=== PATIENT | male | born 1950 | race African-American/Black ===

== ENCOUNTER 2016-12-08 11:46 | Emergency (ER) | payer MEDICARE, OTHER ==
[~2016-12-08] VITALS: Ht 182.9 cm; Wt 104.0 kg
[~2016-12-08 11:46] MED LIST: ALPRAZOLAM; AMLO5TAB88; CLON0.2T; DIGO250T81; DIGOXIN; TAMS-11; ZOLP10TA6
[2016-12-08 14:55] LABS: CLARITY URINE CLEAR (CLEAR); COLOR URINE YELLOW (YELLOW); GLUCOSE URINE NEGATIVE (NEGATIVE); KETONES URINE NEGATIVE (NEGATIVE); LEUKOCYTE ESTERASE URINE NEGATIVE (NEGATIVE); NITRITE URINE NEGATIVE (NEGATIVE); OCCULT BLOOD URINE NEGATIVE (NEGATIVE); PH URINE >=9.0 (4.5-8.0); PROTEIN URINE NEGATIVE (NEGATIVE); SPECIFIC GRAVITY URINE 1.009 (1.005-1.030)
[2016-12-08 15:21] VITALS: BP 148/82
== END 2016-12-08 15:26 | disposition home or self-care (01) ==
LOC: ER 14:04
DX: F41.9 Anxiety disorder, unspecified (principal); I10 Essential (primary) hypertension
CPT/HCPCS: 81003; 99284

== ENCOUNTER 2018-03-23 19:40 | Emergency (ER) | payer MEDICARE, OTHER ==
[~2018-03-23] VITALS: Ht 182.9 cm; Wt 103.0 kg
[~2018-03-23 19:40] MED LIST changes: -ALPRAZOLAM; -AMLO5TAB88; -CLON0.2T; -DIGO250T81; -DIGOXIN
[2018-03-24 01:31] LABS: BASOPHILS % 0.9 % (0.0-2.0); EOSINOPHILS % 1.4 % (0.0-5.0); HEMATOCRIT. 47.8 % (42.0-52.0); LYMPHOCYTES % 36.7 % (20.0-50.0); MEAN CORPUSCULAR HEMOGLOBIN 28.2 pg (28.0-32.0); MEAN CORPUSCULAR VOLUME 84.1 fL (80.0-94.0); PLATELET 219 x1000/uL (130-400); RED BLOOD CELL COUNT 5.68 mill/uL (4.7-6.1); RED CELL DISTRIBUTION WIDTH 15.6 % (11.6-14.6)
[2018-03-24 01:37] LABS: CHLORIDE 106 mEq/L (98-107)
[2018-03-24 03:22] LABS: CLARITY URINE CLEAR (CLEAR); COLOR URINE YELLOW (YELLOW); KETONES URINE TRACE (NEGATIVE); LEUKOCYTE ESTERASE URINE NEGATIVE (NEGATIVE); NITRITE URINE NEGATIVE (NEGATIVE); OCCULT BLOOD URINE TRACE (NEGATIVE); PH URINE 6.5 (4.5-8.0); PROTEIN URINE NEGATIVE (NEGATIVE)
[2018-03-24 03:53] VITALS: BP 133/80
== END 2018-03-24 03:54 | disposition home or self-care (01) ==
LOC: ER 19:40
DX: N40.1 Benign prostatic hyperplasia with lower urinary tract symptoms (principal); R33.8 Other retention of urine; I11.9 Hypertensive heart disease without heart failure
CPT/HCPCS: 36415; 51702; 80048; 93005; 99284; A4315

== ENCOUNTER 2018-03-29 11:50 | Emergency (ER) | payer MEDICARE, OTHER ==
[~2018-03-29] VITALS: Ht 182.9 cm; Wt 104.5 kg
[2018-03-29 14:28] LABS: CLARITY URINE CLEAR (CLEAR); COLOR URINE YELLOW (YELLOW); KETONES URINE TRACE (NEGATIVE); LEUKOCYTE ESTERASE URINE NEGATIVE (NEGATIVE); NITRITE URINE NEGATIVE (NEGATIVE); OCCULT BLOOD URINE NEGATIVE (NEGATIVE); PH URINE 5.5 (4.5-8.0); PROTEIN URINE NEGATIVE (NEGATIVE); SPECIFIC GRAVITY URINE 1.019 (1.005-1.030)
[2018-03-29 14:47] LABS: BASOPHILS % 1.1 % (0.0-2.0); EOSINOPHILS % 0.6 % (0.0-5.0); HEMOGLOBIN. 15.7 g/dL (14.0-18.0); LYMPHOCYTES % 17.3 % (20.0-50.0); MEAN CORPUSCULAR HEMOGLOBIN 27.8 pg (28.0-32.0); MEAN CORPUSCULAR VOLUME 83.4 fL (80.0-94.0); MEAN PLATELET VOLUME 9.6 fl (7.4-10.4); MONOCYTES % 5.1 % (2.0-8.0); NEUTROPHILS % 75.9 % (40.0-76.0); PLATELET 199 x1000/uL (130-400); RED BLOOD CELL COUNT 5.63 mill/uL (4.7-6.1); RED CELL DISTRIBUTION WIDTH 15.9 % (11.6-14.6)
[2018-03-29 14:55] LABS: CHLORIDE 109 mEq/L (98-107)
[2018-03-29 15:36] VITALS: BP 130/89
== END 2018-03-29 15:49 | disposition home or self-care (01) ==
LOC: ER 12:21
DX: N40.0 Benign prostatic hyperplasia without lower urinary tract symptoms (principal); I11.9 Hypertensive heart disease without heart failure; I25.10 Atherosclerotic heart disease of native coronary artery without angina pectoris; Z95.1 Presence of aortocoronary bypass graft
CPT/HCPCS: 36415; 80048; 99283

== ENCOUNTER 2018-06-11 10:59 | Inpatient (IN) | payer MEDICARE, OTHER ==
[~2018-06-11] VITALS: Ht 182.9 cm; Wt 99.4 kg
[~2018-06-11 10:59] MED LIST changes: -ZOLP10TA6
[2018-06-11 13:39] LABS: BASOPHILS % 0.7 % (0.0-2.0); EOSINOPHILS % 1.1 % (0.0-5.0); HEMATOCRIT. 46.2 % (42.0-52.0); HEMOGLOBIN. 15.2 g/dL (14.0-18.0); LYMPHOCYTES % 28.4 % (20.0-50.0); MEAN CORPUSCULAR HEMOGLOBIN 27.9 pg (28.0-32.0); MEAN CORPUSCULAR VOLUME 84.8 fL (80.0-94.0); MEAN PLATELET VOLUME 9.7 fl (7.4-10.4); MONOCYTES % 7.1 % (2.0-8.0); NEUTROPHILS % 62.7 % (40.0-76.0); PLATELET 217 x1000/uL (130-400); RED BLOOD CELL COUNT 5.45 mill/uL (4.7-6.1)
[2018-06-11 13:45] LABS: CHLORIDE 109 mEq/L (98-107); INR 1.1; PROTHROMBIN TIME 11.3 sec (9.1-11.1)
[2018-06-11] MEDS ORDERED: GUAIFENESIN 200MG/10ML SUGAR FREE UDC PO PRN (15:30)
[2018-06-11] MEDS ORDERED: DOCUSATE SODIUM 100MG CAPSULE PO PRN (15:30)
[2018-06-11] MEDS ORDERED: HYDROCODONE/ACETAMINOPHEN 5/325MG TABLET PO PRN (15:30)
[2018-06-11] MEDS ORDERED: MAGNESIUM/ALUMINUM HYDROXIDE/SIMETHICONE 30ML UDC PO PRN (15:30)
[2018-06-11] MEDS ORDERED: NA PHOS,M-B/NA PHOS,DI-BA ENEMA 118ML PR PRN (15:30)
[2018-06-11] MEDS ORDERED: ACETAMINOPHEN 325MG TABLET PO PRN (15:30)
[2018-06-11] MEDS ORDERED: IPRATROPIUM/ALBUTEROL 0.5-3(2.5)MG/3ML NEB INH PRN (15:30)
[2018-06-11] MEDS ORDERED: CLONIDINE 0.1MG TABLET PO PRN (15:30)
[2018-06-11] MEDS: LORAZEPAM 0.5MG TABLET PO PRN (18:56)
[2018-06-12] MEDS: AMLODIPINE 10MG TABLET PO NR (00:44)
[2018-06-12] MEDS: DIPHENHYDRAMINE 50MG/ML VIAL IV PRN (01:34)
[2018-06-12 05:56] LABS: BASOPHILS % 0.9 % (0.0-2.0); EOSINOPHILS % 1.5 % (0.0-5.0); HEMOGLOBIN. 14.9 g/dL (14.0-18.0); LYMPHOCYTES % 29.1 % (20.0-50.0); MEAN CORPUSCULAR HEMOGLOBIN 28.5 pg (28.0-32.0); MEAN CORPUSCULAR VOLUME 84.4 fL (80.0-94.0); MEAN PLATELET VOLUME 9.8 fl (7.4-10.4); MONOCYTES % 8.9 % (2.0-8.0); NEUTROPHILS % 59.6 % (40.0-76.0); PLATELET 217 x1000/uL (130-400); RED BLOOD CELL COUNT 5.21 mill/uL (4.7-6.1); RED CELL DISTRIBUTION WIDTH 17.8 % (11.6-14.6)
[2018-06-12 06:05] LABS: CHLORIDE 108 mEq/L (98-107)
[2018-06-12 06:12] LABS: LDL CHOLESTEROL 96 mg/dL (5-100)
[2018-06-12 06:13] LABS: HDL CHOLESTEROL 60 mg/dL (40-59)
[2018-06-12] MEDS: CLONIDINE 0.1MG TABLET PO PRN ×2 (08:42→17:32)
[2018-06-12] MEDS: LORAZEPAM 0.5MG TABLET PO PRN ×3 (08:42→21:30)
[2018-06-12 15:30] VITALS: BP 179/102
[2018-06-12 15:39] LABS: CREATINE KINASE 43 IU/L (39-308)
[2018-06-12 16:19] VITALS: BP 179/102
[2018-06-12] MEDS ORDERED: APIX5TAB MT (16:29)
[2018-06-12] MEDS ORDERED: ALPR0.25 PO (16:34)
[2018-06-12] MEDS ORDERED: CLON0.2T PO (16:35)
[2018-06-12] MEDS ORDERED: CIPR-263 MT (16:38)
[2018-06-12] MEDS ORDERED: PNEUMOCOCCAL 23-VAL P-SAC VAC 0.5 ML IM ONE (17:15)
[2018-06-12] MEDS: LOSARTAN POTASSIUM 100 MG TABLET PO SCH (17:33)
[2018-06-13] VITALS (9 sets, daily range): BP systolic 131–196; BP diastolic 30–130
[2018-06-13] MEDS: CLONIDINE 0.1MG TABLET PO PRN ×3 (00:51→23:24)
[2018-06-13] MEDS: LORAZEPAM 0.5MG TABLET PO PRN ×4 (03:54→21:23)
[2018-06-13 06:45] LABS: EOSINOPHILS % 0.6 % (0.0-5.0); HEMATOCRIT. 45.4 % (42.0-52.0); HEMOGLOBIN. 15.2 g/dL (14.0-18.0); LYMPHOCYTES % 27.7 % (20.0-50.0); MEAN CORPUSCULAR HEMOGLOBIN 28.2 pg (28.0-32.0); MEAN CORPUSCULAR VOLUME 84.3 fL (80.0-94.0); MONOCYTES % 9.3 % (2.0-8.0); NEUTROPHILS % 61.4 % (40.0-76.0); PLATELET 213 x1000/uL (130-400); RED BLOOD CELL COUNT 5.38 mill/uL (4.7-6.1); RED CELL DISTRIBUTION WIDTH 17.5 % (11.6-14.6)
[2018-06-13 06:56] LABS: CHLORIDE 107 mEq/L (98-107)
[2018-06-13 07:16] LABS: HDL CHOLESTEROL 60 mg/dL (40-59)
[2018-06-13 07:19] LABS: LDL CHOLESTEROL 100 mg/dL (5-100)
[2018-06-13 07:20] LABS: CREATINE KINASE MB FRACTION 1.1 ng/mL (0.5-3.6)
[2018-06-13] MEDS: LOSARTAN POTASSIUM 100 MG TABLET PO SCH (08:50)
[2018-06-13] MEDS ORDERED: AMLODIPINE 10MG TABLET PO SCH (09:00)
[2018-06-13] MEDS ORDERED: HYDRALAZINE 20MG/ML VIAL IV PRN (11:45)
[2018-06-13] MEDS ORDERED: POTASSIUM CHLORIDE 20MEQ/PACKET PO SCH (12:45)
[2018-06-13] MEDS: DEXAMETHASONE 4MG/ML 1ML VIAL IV SCH ×2 (12:54→17:15)
[2018-06-13] MEDS ORDERED: MAGNESIUM 1 G PREMIX 100 ML IV SCH (14:00)
[2018-06-13] MEDS: AMIODARONE HCL 200 MG TABLET PO SCH ×2 (14:21→20:32)
[2018-06-13] MEDS ORDERED: MAGNESIUM 1 G PREMIX 100 ML IV NR (17:00)
[2018-06-13] MEDS ORDERED: TAMS0.4C31 MT (20:11)
[2018-06-13] MEDS: TAMSULOSIN HCL 0.4MG SR CAPSULE PO SCH (20:32)
[2018-06-13] MEDS: AMLODIPINE 10MG TABLET PO SCH (20:32)
[2018-06-14] VITALS (55 sets, daily range): BP systolic 61–172; BP diastolic 54–111
[2018-06-14] MEDS ORDERED: DEXT 5%/0.45% NACL 1000ML 1,000 ML IV SCH
[2018-06-14] MEDS: DEXAMETHASONE 4MG/ML 1ML VIAL IV SCH ×5 (00:58→23:32)
[2018-06-14] MEDS: ACETAMINOPHEN 650MG SUPP PR PRN ×2 (02:59→03:04)
[2018-06-14 03:51] LABS: CLARITY URINE CLEAR (CLEAR); COLOR URINE DARK YELLOW (YELLOW); KETONES URINE 1+ (NEGATIVE); LEUKOCYTE ESTERASE URINE NEGATIVE (NEGATIVE); NITRITE URINE NEGATIVE (NEGATIVE); OCCULT BLOOD URINE NEGATIVE (NEGATIVE); PROTEIN URINE 1+ (NEGATIVE); SPECIFIC GRAVITY URINE 1.022 (1.005-1.030)
[2018-06-14 06:21] LABS: BASOPHILS % 0.3 % (0.0-2.0); HEMATOCRIT. 48.3 % (42.0-52.0); HEMOGLOBIN. 16.4 g/dL (14.0-18.0); LYMPHOCYTES % 15.8 % (20.0-50.0); MEAN CORPUSCULAR HEMOGLOBIN 28.5 pg (28.0-32.0); MEAN PLATELET VOLUME 9.9 fl (7.4-10.4); MONOCYTES % 3.2 % (2.0-8.0); NEUTROPHILS % 80.7 % (40.0-76.0); PLATELET 260 x1000/uL (130-400); RED BLOOD CELL COUNT 5.76 mill/uL (4.7-6.1); RED CELL DISTRIBUTION WIDTH 17.8 % (11.6-14.6)
[2018-06-14 06:27] LABS: CHLORIDE 109 mEq/L (98-107)
[2018-06-14] MEDS ORDERED: GELATIN SPONGE,ABSORBABLE 12-7MM SPONGE ONE (06:43)
[2018-06-14] MEDS ORDERED: THROMBIN (BOVINE) 5000 UNITS/VIAL TOP ONE ×2 (06:43→06:44)
[2018-06-14] MEDS ORDERED: BACITRACIN 50,000 UNITS/VIAL ONE (06:44)
[2018-06-14] MEDS ORDERED: LIDOCAINE HCL/EPINEPHRINE 1%-EPI 1:100,000 20 ML VIAL ONE (06:44)
[2018-06-14] MEDS ORDERED: NORMAL SALINE 0.9% 10 ML SYR ONE (06:44)
[2018-06-14] MEDS ORDERED: SUCCINYLCHOLINE CHLORIDE 200MG/10ML IV ONE (07:02)
[2018-06-14] MEDS ORDERED: FENTANYL CITRATE/PF 50MCG/ML 2ML VIAL ONE ×3 (07:02→08:02)
[2018-06-14] MEDS ORDERED: PROPOFOL 200MG/20ML VIAL IV ONE ×2 (07:02→07:41)
[2018-06-14] MEDS ORDERED: CEFAZOLIN SODIUM 1000MG/VIAL ONE (07:02)
[2018-06-14] MEDS ORDERED: NEOSTIGMINE METHYLSULFATE 1MG/ML 10 ML VIAL ONE ×2 (07:02→10:12)
[2018-06-14] MEDS ORDERED: SODIUM CHLORIDE 0.9% 10ML VIAL ONE (07:02)
[2018-06-14] MEDS ORDERED: GLYCOPYRROLATE 0.2 MG/ML 2ML VIAL ONE ×2 (07:02→10:12)
[2018-06-14] MEDS ORDERED: ROCURONIUM BROMIDE 10MG/ML VIAL 5ML IV ONE ×3 (07:02→07:56)
[2018-06-14] MEDS ORDERED: MIDAZOLAM HCL 2 MG/2 ML VIAL ONE (07:02)
[2018-06-14] MEDS ORDERED: EPHEDRINE SULFATE 50MG/ML VIAL ONE (07:03)
[2018-06-14] MEDS ORDERED: DEXAMETHASONE 4MG/ML 1ML VIAL ONE (07:03)
[2018-06-14] MEDS ORDERED: METOCLOPRAMIDE HCL 10MG/2ML VIAL ONE (07:03)
[2018-06-14] MEDS ORDERED: PHENYLEPHRINE HCL 10 MG/ML 1ML (IV VIAL) IV ONE (07:03)
[2018-06-14] MEDS ORDERED: ONDANSETRON HCL 4MG/2ML INJ ONE (07:03)
[2018-06-14] MEDS: AMIODARONE HCL 200 MG TABLET PO SCH ×2 (09:00→21:20)
[2018-06-14] MEDS: LOSARTAN POTASSIUM 100 MG TABLET PO SCH (09:00)
[2018-06-14] MEDS: AMLODIPINE 10MG TABLET PO SCH ×2 (09:00→21:20)
[2018-06-14] MEDS: TAMSULOSIN HCL 0.4MG SR CAPSULE PO SCH ×2 (09:00→17:00)
[2018-06-14] MEDS ORDERED: DEXT 5%/LACTATED RINGERS 1,000 ML IV SCH (10:12)
[2018-06-14] MEDS ORDERED: HYDROCODONE/APAP 7.5/325MG 1 TAB TABLET PO PRN (10:13)
[2018-06-14] MEDS ORDERED: MORPHINE SULFATE 4 MG/ML CPJ (NOT FOR IM USE) IV PRN (10:14)
[2018-06-14] MEDS: DEXT 5%/LACTATED RINGERS 1,000 ML IV SCH ×2 (11:50→17:18)
[2018-06-14] MEDS: NICARDIPINE 100 MG in SODIUM CHLORIDE 0.9% 60 ML IV PRN (13:57)
[2018-06-14] MEDS ORDERED: CEFAZOLIN SODIUM 1000MG/VIAL IV SCH (14:00)
[2018-06-14 14:08] LABS: BG BASE EXCESS -4.6 mmol/L (-2.0-2.0); BG CARBOXYHEMOGLOBIN 0.4 % (0.5-1.5); BG DEOXYHEMOGLOBIN 1.3 % (0.0-5.0); BG HCO3 ACT 19.9 mmol/L (22.0-26.0); BG METHEMOGLOBIN 0.4 % (0.0-1.5); BG OXYGEN SATURATION 98.7 % (92.0-98.5); BG OXYHEMOGLOBIN 97.9 % (94.0-97.0); BG PCO2 35.3 mmHg (35.0-45.0); BG PH 7.369 (7.350-7.450); BG PO2 146.8 mmHg (75.0-100.0); BG SAMPLE SITE A-LINE; BG TOTAL HEMOGLOBIN 15.4 g/dL (12.0-18.0); BG VENT MODE MASK - SIMPLE
[2018-06-14] MEDS: CEFAZOLIN 1000MG PREMIX 50 ML IV SCH ×2 (15:58→21:20)
[2018-06-14] MEDS: MORPHINE SULFATE 4 MG/ML CPJ (NOT FOR IM USE) IV PRN ×2 (17:18→23:33)
[2018-06-15] VITALS (93 sets, daily range): BP systolic 104–158; BP diastolic 56–97
[2018-06-15] MEDS: LORAZEPAM 0.5MG TABLET PO PRN ×4 (02:33→23:25)
[2018-06-15] MEDS: DEXT 5%/LACTATED RINGERS 1,000 ML IV SCH ×3 (03:27→19:29)
[2018-06-15] MEDS: NICARDIPINE 100 MG in SODIUM CHLORIDE 0.9% 60 ML IV PRN (03:27)
[2018-06-15] MEDS: MORPHINE SULFATE 4 MG/ML CPJ (NOT FOR IM USE) IV PRN ×4 (03:36→19:23)
[2018-06-15 05:33] LABS: HEMOGLOBIN. 15.5 g/dL (14.0-18.0); MEAN CORPUSCULAR HEMOGLOBIN 28.4 pg (28.0-32.0); MEAN CORPUSCULAR VOLUME 84.5 fL (80.0-94.0); RED BLOOD CELL COUNT 5.44 mill/uL (4.7-6.1); RED CELL DISTRIBUTION WIDTH 18.2 % (11.6-14.6)
[2018-06-15] MEDS: DEXAMETHASONE 4MG/ML 1ML VIAL IV SCH ×4 (05:38→23:25)
[2018-06-15] MEDS: CEFAZOLIN 1000MG PREMIX 50 ML IV SCH ×2 (05:38→15:13)
[2018-06-15 06:06] LABS: CHLORIDE 109 mEq/L (98-107)
[2018-06-15] MEDS: LOSARTAN POTASSIUM 100 MG TABLET PO SCH (09:18)
[2018-06-15] MEDS: TAMSULOSIN HCL 0.4MG SR CAPSULE PO SCH ×2 (09:18→18:21)
[2018-06-15] MEDS: AMIODARONE HCL 200 MG TABLET PO SCH ×2 (09:18→20:04)
[2018-06-15] MEDS: AMLODIPINE 10MG TABLET PO SCH (09:18)
[2018-06-15] MEDS: DILTIAZEM HCL 125 MG in DEXT 5% WATER 100 ML IV PRN ×2 (10:01→19:29)
[2018-06-15 10:08] LABS: PLATELET ESTIMATE NORMAL
[2018-06-15 10:09] LABS: MEAN PLATELET VOLUME 9.1 fl (7.4-10.4); PLATELET 290 x1000/uL (130-400)
[2018-06-15] MEDS: METOPROLOL TARTRATE 25MG TABLET PO SCH ×2 (15:14→20:05)
[2018-06-15] MEDS: CLONIDINE 0.1MG TABLET PO PRN (18:22)
[2018-06-15] MEDS: DIPHENHYDRAMINE 50MG/ML VIAL IV PRN (19:23)
[2018-06-16] VITALS (44 sets, daily range): BP systolic 103–148; BP diastolic 62–91
[2018-06-16] MEDS: DEXT 5%/LACTATED RINGERS 1,000 ML IV SCH ×2 (02:26→13:24)
[2018-06-16] MEDS: MORPHINE SULFATE 4 MG/ML CPJ (NOT FOR IM USE) IV PRN ×2 (04:15→16:07)
[2018-06-16] MEDS: DEXAMETHASONE 4MG/ML 1ML VIAL IV SCH (05:09)
[2018-06-16 05:52] LABS: CHLORIDE 109 mEq/L (98-107)
[2018-06-16 05:54] LABS: HEMATOCRIT. 41.9 % (42.0-52.0); HEMOGLOBIN. 13.9 g/dL (14.0-18.0); MEAN CORPUSCULAR HEMOGLOBIN 28.2 pg (28.0-32.0); MEAN CORPUSCULAR VOLUME 85.3 fL (80.0-94.0); MEAN PLATELET VOLUME 9.5 fl (7.4-10.4); PLATELET 210 x1000/uL (130-400); RED BLOOD CELL COUNT 4.91 mill/uL (4.7-6.1); RED CELL DISTRIBUTION WIDTH 17.9 % (11.6-14.6)
[2018-06-16 07:51] LABS: PLATELET ESTIMATE NORMAL
[2018-06-16] MEDS: TAMSULOSIN HCL 0.4MG SR CAPSULE PO SCH ×2 (08:24→17:22)
[2018-06-16] MEDS: AMIODARONE HCL 200 MG TABLET PO SCH (08:24)
[2018-06-16] MEDS: METOPROLOL TARTRATE 25MG TABLET PO SCH ×2 (08:25→20:43)
[2018-06-16] MEDS: LOSARTAN POTASSIUM 100 MG TABLET PO SCH (08:25)
[2018-06-16] MEDS ORDERED: DILTIAZEM HCL 60MG TABLET PO SCH (14:30)
[2018-06-16] MEDS ORDERED: AMIODARONE HCL 150 MG in DEXT 5% WATER 100 ML IV NR (15:00)
[2018-06-16] MEDS ORDERED: MAGNESIUM 1 G PREMIX 100 ML IV NR (16:00)
[2018-06-16] MEDS ORDERED: AMIODARONE HCL 200 MG TABLET PO SCH (17:00)
[2018-06-17] VITALS (36 sets, daily range): BP systolic 116–159; BP diastolic 67–125
[2018-06-17] MEDS: DEXT 5%/LACTATED RINGERS 1,000 ML IV SCH (00:52)
[2018-06-17 06:03] LABS: HEMOGLOBIN. 14.6 g/dL (14.0-18.0); MEAN CORPUSCULAR HEMOGLOBIN 28.2 pg (28.0-32.0); MEAN CORPUSCULAR VOLUME 84.9 fL (80.0-94.0); MEAN PLATELET VOLUME 9.4 fl (7.4-10.4); PLATELET 243 x1000/uL (130-400); RED BLOOD CELL COUNT 5.18 mill/uL (4.7-6.1); RED CELL DISTRIBUTION WIDTH 17.8 % (11.6-14.6)
[2018-06-17] MEDS: CLONIDINE 0.1MG TABLET PO PRN (06:30)
[2018-06-17 06:32] LABS: CHLORIDE 109 mEq/L (98-107)
[2018-06-17 06:44] LABS: T4 FREE 0.92 ng/dL (0.76-1.46)
[2018-06-17 08:41] LABS: NUCLEATED RED BLOOD CELLS 1 /100 WBC; PLATELET ESTIMATE NORMAL
[2018-06-17] MEDS: LOSARTAN POTASSIUM 100 MG TABLET PO SCH (09:54)
[2018-06-17] MEDS: METOPROLOL TARTRATE 25MG TABLET PO SCH ×2 (09:55→20:32)
[2018-06-17] MEDS: TAMSULOSIN HCL 0.4MG SR CAPSULE PO SCH ×2 (09:55→18:04)
[2018-06-17 14:05] LABS: HEPATITIS B SURFACE ANTIGEN NEGATIVE
[2018-06-17 14:33] LABS: HEPATITIS A AB IGM NEGATIVE (NEGATIVE)
[2018-06-17] MEDS: ONDANSETRON HCL 4MG/2ML INJ IV PRN (23:22)
[2018-06-17] MEDS: MORPHINE SULFATE 4 MG/ML CPJ (NOT FOR IM USE) IV PRN (23:58)
[2018-06-18] VITALS (29 sets, daily range): BP systolic 116–161; BP diastolic 62–102
[2018-06-18 05:52] LABS: CHLORIDE 110 mEq/L (98-107)
[2018-06-18 05:54] LABS: HEMATOCRIT 45.6 % (42.0-52.0); HEMOGLOBIN 15.2 g/dL (14.0-18.0); MEAN CORPUSCULAR HEMOGLOBIN 28.4 pg (28.0-32.0); MEAN CORPUSCULAR VOLUME 85.3 fL (80.0-94.0); PLATELET 259 x1000/uL (130-400); RED BLOOD CELL COUNT 5.34 mill/uL (4.7-6.1)
[2018-06-18] MEDS: MORPHINE SULFATE 4 MG/ML CPJ (NOT FOR IM USE) IV PRN ×3 (08:01→20:58)
[2018-06-18] MEDS: TAMSULOSIN HCL 0.4MG SR CAPSULE PO SCH ×2 (09:43→16:36)
[2018-06-18] MEDS: LOSARTAN POTASSIUM 100 MG TABLET PO SCH (09:43)
[2018-06-18] MEDS: METOPROLOL TARTRATE 25MG TABLET PO SCH (09:44)
[2018-06-18] MEDS ORDERED: POTASSIUM CHLORIDE 20MEQ TABLET SR PO SCH (12:45)
[2018-06-18] MEDS ORDERED: LACTULOSE 20G/30ML UDC PO SCH (12:45)
[2018-06-18] MEDS ORDERED: GUAIFENESIN 200MG/10ML SUGAR FREE UDC PO PRN (12:45)
[2018-06-18] MEDS: ONDANSETRON HCL 4MG/2ML INJ IV PRN (12:50)
[2018-06-18] MEDS: IPRATROPIUM/ALBUTEROL 0.5-3(2.5)MG/3ML NEB HHN SCH ×2 (15:09→20:37)
[2018-06-18] MEDS ORDERED: HYDROCODONE/APAP 7.5/325MG 1 TAB TABLET PO PRN (16:13)
[2018-06-18] MEDS: SOTALOL HCL 80MG TABLET PO SCH ×2 (16:36→20:59)
[2018-06-18] MEDS: GUAIFENESIN 600MG ER TABLET PO SCH (20:59)
[2018-06-18] MEDS ORDERED: METOPROLOL TARTRATE 50MG TABLET PO SCH (21:00)
[2018-06-19] VITALS (17 sets, daily range): BP systolic 124–163; BP diastolic 69–99
[2018-06-19] MEDS: MORPHINE SULFATE 4 MG/ML CPJ (NOT FOR IM USE) IV PRN ×2 (02:16→20:15)
[2018-06-19] MEDS: IPRATROPIUM/ALBUTEROL 0.5-3(2.5)MG/3ML NEB HHN SCH ×4 (02:30→20:23)
[2018-06-19 06:22] LABS: BASOPHILS % 0.4 % (0.0-2.0); EOSINOPHILS % 1.1 % (0.0-5.0); HEMATOCRIT. 46.1 % (42.0-52.0); HEMOGLOBIN. 15.6 g/dL (14.0-18.0); LYMPHOCYTES % 11.5 % (20.0-50.0); MEAN CORPUSCULAR VOLUME 85.5 fL (80.0-94.0); MEAN PLATELET VOLUME 9.5 fl (7.4-10.4); PLATELET 235 x1000/uL (130-400); RED BLOOD CELL COUNT 5.39 mill/uL (4.7-6.1); RED CELL DISTRIBUTION WIDTH 17.2 % (11.6-14.6)
[2018-06-19 06:33] LABS: CHLORIDE 107 mEq/L (98-107)
[2018-06-19] MEDS: TAMSULOSIN HCL 0.4MG SR CAPSULE PO SCH ×2 (08:06→17:10)
[2018-06-19] MEDS: LOSARTAN POTASSIUM 100 MG TABLET PO SCH (08:06)
[2018-06-19] MEDS: GUAIFENESIN 600MG ER TABLET PO SCH ×2 (08:06→20:16)
[2018-06-19] MEDS: ASPIRIN 81MG EC TABLET PO SCH (08:06)
[2018-06-19] MEDS: SOTALOL HCL 80MG TABLET PO SCH ×2 (08:06→20:16)
[2018-06-19] MEDS: HYDROCODONE/ACETAMINOPHEN 5/325MG TABLET PO PRN (11:08)
[2018-06-19] MEDS: ALPRAZOLAM 0.5 MG TABLET PO PRN (16:56)
[2018-06-19] MEDS ORDERED: APIXABAN 5 MG TABLET PO SCH (17:00)
[2018-06-19] MEDS: APIXABAN 2.5 MG TABLET PO SCH (17:10)
[2018-06-19] MEDS: CLONIDINE 0.1MG TABLET PO PRN (17:10)
[2018-06-20] VITALS: BP 134/87
[2018-06-20] MEDS: ALPRAZOLAM 0.5 MG TABLET PO PRN ×2 (00:05→07:03)
[2018-06-20] MEDS: HYDROCODONE/ACETAMINOPHEN 5/325MG TABLET PO PRN ×2 (03:31→13:35)
[2018-06-20 04:00] VITALS: BP 142/81
[2018-06-20 07:10] LABS: HEMATOCRIT 43.3 % (42.0-52.0); HEMOGLOBIN 14.2 g/dL (14.0-18.0); MEAN CORPUSCULAR HEMOGLOBIN 27.9 pg (28.0-32.0); MEAN CORPUSCULAR VOLUME 84.7 fL (80.0-94.0); PLATELET 260 x1000/uL (130-400); RED BLOOD CELL COUNT 5.11 mill/uL (4.7-6.1); RED CELL DISTRIBUTION WIDTH 17.4 % (11.6-14.6)
[2018-06-20 07:29] LABS: CHLORIDE 109 mEq/L (98-107)
[2018-06-20 08:00] VITALS: BP 151/86
[2018-06-20] MEDS: LOSARTAN POTASSIUM 100 MG TABLET PO SCH (08:57)
[2018-06-20] MEDS: TAMSULOSIN HCL 0.4MG SR CAPSULE PO SCH (08:57)
[2018-06-20] MEDS: ASPIRIN 81MG EC TABLET PO SCH (08:57)
[2018-06-20] MEDS: GUAIFENESIN 600MG ER TABLET PO SCH (08:58)
[2018-06-20] MEDS: APIXABAN 2.5 MG TABLET PO SCH (08:58)
[2018-06-20] MEDS: SOTALOL HCL 80MG TABLET PO SCH (08:58)
[2018-06-20] MEDS: MORPHINE SULFATE 4 MG/ML CPJ (NOT FOR IM USE) IV PRN (10:33)
[2018-06-20 12:00] VITALS: BP 140/79
[2018-06-20] MEDS ORDERED: CLONIDINE 0.1MG TABLET PO SCH (14:00)
[2018-06-20 16:00] VITALS: BP 135/101
[2018-06-20 16:32] VITALS: BP 135/120
== END 2018-06-20 17:56 | DRG 321 ==
LOC: ER 10:59 → 8WST 14:07 → EDBEDREQ 14:12 → EDBEDREQSVC 14:12 → EDBEDREQTM 14:12 → EDBEDREQSVC 06-12 06:42 → ENRESERV 06-12 13:55 → MICUSO 06-14 09:03 → 7WST 06-19 12:05
PROVIDERS: ADMIT Internal Medicine; ATTEND Internal Medicine
PROC: 0RG2071 Fusion of 2 or more Cervical Vertebral Joints with Autologous Tissue Substitute, Posterior Approach, Posterior Column, Open Approach (ICD-10-PCS; principal; 2018-06-14)
PROC: 00NW0ZZ Release Cervical Spinal Cord, Open Approach (ICD-10-PCS; 2018-06-14)
PROC: 4A11X4G Monitoring of Peripheral Nervous Electrical Activity, Intraoperative, External Approach (ICD-10-PCS; 2018-06-14)
DX: M48.02 Spinal stenosis, cervical region (principal); G92 Toxic encephalopathy; G82.50 Quadriplegia, unspecified; I50.33 Acute on chronic diastolic (congestive) heart failure; D68.59 Other primary thrombophilia; I48.0 Paroxysmal atrial fibrillation; G95.89 Other specified diseases of spinal cord; M47.12 Other spondylosis with myelopathy, cervical region; M47.22 Other spondylosis with radiculopathy, cervical region; N28.1 Cyst of kidney, acquired; E05.90 Thyrotoxicosis, unspecified without thyrotoxic crisis or storm; E11.9 Type 2 diabetes mellitus without complications; E66.9 Obesity, unspecified; G89.29 Other chronic pain; I25.10 Atherosclerotic heart disease of native coronary artery without angina pectoris; N40.0 Benign prostatic hyperplasia without lower urinary tract symptoms; F41.9 Anxiety disorder, unspecified; I11.0 Hypertensive heart disease with heart failure; I49.3 Ventricular premature depolarization; M47.816 Spondylosis without myelopathy or radiculopathy, lumbar region; M48.061 Spinal stenosis, lumbar region without neurogenic claudication; T38.0X5A Adverse effect of glucocorticoids and synthetic analogues, initial encounter; Y92.89 Other specified places as the place of occurrence of the external cause; Z79.82 Long term (current) use of aspirin; Z79.01 Long term (current) use of anticoagulants; I25.2 Old myocardial infarction; Z95.1 Presence of aortocoronary bypass graft; Z79.899 Other long term (current) drug therapy; Z87.891 Personal history of nicotine dependence; Z68.29 Body mass index [BMI] 29.0-29.9, adult
CPT/HCPCS: 36415; 36600; 71045; 72040; 72131; 72141; 72148; 74018; 76000; 76700; 80048; 80061; 82375; 82550; 82553; 82805; 83036; 83735; 84439; 84443; 84481; 84484; 85027; 86705; 86709; 86803; 86850; 86900; 87340; 93005; 93306; 93970; 94002; 94640; 95925; 95926; 95928; 95929; 96374; 97116; 97162; 97166; 97530; 99285; C1713; J0282; J0330; J0360; J0690; J1100; J1200; J2250; J2270; J2370; J2405; J2704; J2710; J2765; J3010; J3475; J3490; J7050; J7060; J7121; J7620; L0172

== ENCOUNTER 2018-08-15 19:46 | Inpatient (IN) | payer MEDICARE, OTHER ==
[~2018-08-15] VITALS: Ht 182.9 cm; Wt 90.1 kg
[~2018-08-15 19:46] MED LIST changes: +ALPR0.25 PO; +APIX5TAB MT; +CIPR-263 MT; +CLON0.2T PO; +TAMS0.4C31 MT
[2018-08-15] MEDS ORDERED: ASPIRIN 325MG TABLET PO ONE (20:15)
[2018-08-15] MEDS ORDERED: HYDRALAZINE 20MG/ML VIAL IV ONE ×2 (21:00→22:00)
[2018-08-15 21:13] LABS: BASOPHILS % 0.4 % (0.0-2.0); HEMATOCRIT. 47.6 % (42.0-52.0); LYMPHOCYTES % 10.4 % (20.0-50.0); MEAN CORPUSCULAR HEMOGLOBIN 29.3 pg (28.0-32.0); MEAN CORPUSCULAR VOLUME 87.4 fL (80.0-94.0); MEAN PLATELET VOLUME 9.1 fl (7.4-10.4); MONOCYTES % 6.3 % (2.0-8.0); NEUTROPHILS % 82.9 % (40.0-76.0); PLATELET 283 x1000/uL (130-400); RED BLOOD CELL COUNT 5.45 mill/uL (4.7-6.1); RED CELL DISTRIBUTION WIDTH 15.2 % (11.6-14.6)
[2018-08-15 21:20] LABS: CHLORIDE 110 mEq/L (98-107)
[2018-08-16] VITALS (67 sets, daily range): BP systolic 112–178; BP diastolic 69–118
[2018-08-16] MEDS: NIFEDIPINE XL 60MG TAB PO SCH ×2 (00:25→09:00)
[2018-08-16] MEDS: NITROGLYCERIN 50MG PREMIX 250 ML IV SCH ×3 (01:45→19:19)
[2018-08-16] MEDS ORDERED: ONDANSETRON HCL 4MG/2ML INJ ONE ×2 (03:05→04:52)
[2018-08-16] MEDS ORDERED: CODE473S5 MT (05:57)
[2018-08-16] MEDS ORDERED: BUPR300F3 MT (05:57)
[2018-08-16] MEDS ORDERED: ACET-2853 MT (05:57)
[2018-08-16] MEDS ORDERED: TRAM150C25 PO (05:57)
[2018-08-16] MEDS ORDERED: ONDANSETRON HCL 4MG/2ML INJ IV PRN (06:00)
[2018-08-16] MEDS ORDERED: ACETAMINOPHEN 500MG TABLET PO PRN (06:00)
[2018-08-16] MEDS: METOPROLOL TARTRATE 50MG TABLET PO SCH ×2 (09:00→21:31)
[2018-08-16] MEDS ORDERED: IPRATROPIUM/ALBUTEROL 0.5-3(2.5)MG/3ML NEB INH PRN (09:00)
[2018-08-16] MEDS ORDERED: CLONIDINE 0.1MG TABLET PO PRN (09:00)
[2018-08-16] MEDS: TAMSULOSIN HCL 0.4MG SR CAPSULE PO SCH ×2 (09:00→17:21)
[2018-08-16] MEDS ORDERED: ACETAMINOPHEN 325MG TABLET PO PRN (09:00)
[2018-08-16] MEDS: LOSARTAN POTASSIUM 100 MG TABLET PO SCH (09:00)
[2018-08-16] MEDS ORDERED: LORAZEPAM 0.5MG TABLET PO PRN (09:00)
[2018-08-16] MEDS ORDERED: APIXABAN 5 MG TABLET PO SCH (09:30)
[2018-08-16] MEDS: ONDANSETRON HCL 4MG/2ML INJ IV PRN ×2 (11:22→17:22)
[2018-08-16] MEDS ORDERED: HYDRALAZINE 20MG/ML VIAL IV PRN (11:45)
[2018-08-16] MEDS: DEXT 5%/0.45% NACL 1000ML 1,000 ML IV SCH (11:45)
[2018-08-16] MEDS ORDERED: METOPROLOL TARTRATE 5MG/5ML VIAL IV NR (12:00)
[2018-08-16] MEDS ORDERED: IOHEXOL-350 100 ML BOTTLE ONE (12:24)
[2018-08-16 13:05] LABS: BG BASE EXCESS 1.2 mmol/L (-2.0-2.0); BG CARBOXYHEMOGLOBIN 0.7 % (0.5-1.5); BG DEOXYHEMOGLOBIN 5.9 % (0.0-5.0); BG FRACTION INSPIRED OXYGEN 28; BG HCO3 ACT 25.2 mmol/L (22.0-26.0); BG METHEMOGLOBIN 0.4 % (0.0-1.5); BG PH 7.439 (7.350-7.450); BG PO2 69.3 mmHg (75.0-100.0); BG SAMPLE SITE RIGHT RADIAL; BG TOTAL HEMOGLOBIN 14.6 g/dL (12.0-18.0); BG VENT MODE NASAL CANNULA
[2018-08-16 13:07] LABS: HEMATOCRIT 42.1 % (42.0-52.0); HEMOGLOBIN 14.1 g/dL (14.0-18.0); MEAN CORPUSCULAR HEMOGLOBIN 29.2 pg (28.0-32.0); PLATELET 292 x1000/uL (130-400); RED BLOOD CELL COUNT 4.84 mill/uL (4.7-6.1); RED CELL DISTRIBUTION WIDTH 15.3 % (11.6-14.6)
[2018-08-16 13:13] LABS: INR 1.2; PROTHROMBIN TIME 12.1 sec (9.6-11.0)
[2018-08-16 13:20] LABS: CHLORIDE 110 mEq/L (98-107)
[2018-08-16 13:28] LABS: CREATINE KINASE 60 IU/L (39-308)
[2018-08-16 13:29] LABS: CREATINE KINASE MB FRACTION 1.5 ng/mL (0.5-3.6)
[2018-08-16] MEDS: SODIUM CHLORIDE 0.9% INJ 3ML FLUSH IVF SCH ×2 (14:00→21:30)
[2018-08-16] MEDS: PANTOPRAZOLE SODIUM 40 MG/VIAL IV SCH ×2 (15:35→22:45)
[2018-08-16 17:14] LABS: CLARITY URINE CLEAR (CLEAR); COLOR URINE YELLOW (YELLOW); KETONES URINE NEGATIVE (NEGATIVE); LEUKOCYTE ESTERASE URINE NEGATIVE (NEGATIVE); NITRITE URINE NEGATIVE (NEGATIVE); OCCULT BLOOD URINE 2+ (NEGATIVE); PROTEIN URINE 1+ (NEGATIVE); SPECIFIC GRAVITY URINE 1.079 (1.005-1.030); UROBILINOGEN URINE 0.2 E.U./dL (0.2-1.0)
[2018-08-16 17:41] LABS: *AMPHETAMINES SCREEN URINE NEGATIVE (NEGATIVE); *BARBITURATES SCREEN URINE NEGATIVE (NEGATIVE); *BENZODIAZEPINES SCREEN URINE NEGATIVE (NEGATIVE); *COCAINE SCREEN URINE NEGATIVE (NEGATIVE); CANNABINOID URINE SCREEN NEGATIVE (NEGATIVE); METHADONE URINE SCREEN NEGATIVE (NEGATIVE); OPIATES URINE SCREEN PRESUMTIVE POSITIVE (NEGATIVE); PHENCYCLIDINE URINE SCREEN NEGATIVE (NEGATIVE)
[2018-08-16] MEDS ORDERED: POTASSIUM CHLORIDE INJ 40 MEQ in DEXT 5% WATER 250 ML IV SCH (18:00)
[2018-08-16] MEDS ORDERED: VANCOMYCIN 1500MG in DEXTROSE 5% WATER 250ML IV NR (20:00)
[2018-08-16] MEDS: PIPERACILLIN/TAZ 3.375G PREMIX 50 ML IV SCH (21:30)
[2018-08-16] MEDS: VANCOMYCIN 1250MG in DEXTROSE 5% WATER 250ML IV SCH ×2 (21:30→21:33)
[2018-08-16] MEDS: MORPHINE SULFATE 4 MG/ML CPJ (NOT FOR IM USE) IV PRN (21:32)
[2018-08-16] MEDS: LORAZEPAM 2MG/ML CPJ IV PRN (22:46)
[2018-08-17] VITALS (45 sets, daily range): BP systolic 101–149; BP diastolic 63–119
[2018-08-17] MEDS: PIPERACILLIN/TAZ 3.375G PREMIX 50 ML IV SCH ×4 (04:07→20:46)
[2018-08-17] MEDS: DEXT 5%/0.45% NACL 1000ML 1,000 ML IV SCH ×2 (04:08→20:47)
[2018-08-17] MEDS: SODIUM CHLORIDE 0.9% INJ 3ML FLUSH IVF SCH ×3 (06:00→21:28)
[2018-08-17 06:47] LABS: HEMATOCRIT 42.3 % (42.0-52.0); HEMOGLOBIN 14.1 g/dL (14.0-18.0); MEAN CORPUSCULAR HEMOGLOBIN 29.3 pg (28.0-32.0); MEAN CORPUSCULAR VOLUME 87.5 fL (80.0-94.0); PLATELET 274 x1000/uL (130-400); RED BLOOD CELL COUNT 4.84 mill/uL (4.7-6.1); RED CELL DISTRIBUTION WIDTH 15.3 % (11.6-14.6)
[2018-08-17 06:57] LABS: CHLORIDE 110 mEq/L (98-107)
[2018-08-17] MEDS: PANTOPRAZOLE SODIUM 40 MG/VIAL IV SCH ×2 (08:47→20:46)
[2018-08-17] MEDS: LORAZEPAM 2MG/ML CPJ IV PRN ×2 (08:47→17:25)
[2018-08-17] MEDS: NIFEDIPINE XL 60MG TAB PO SCH (08:48)
[2018-08-17] MEDS: TAMSULOSIN HCL 0.4MG SR CAPSULE PO SCH ×2 (08:48→17:24)
[2018-08-17] MEDS: LOSARTAN POTASSIUM 100 MG TABLET PO SCH (08:48)
[2018-08-17] MEDS: METOPROLOL TARTRATE 50MG TABLET PO SCH ×2 (08:49→20:46)
[2018-08-17] MEDS: MORPHINE SULFATE 4 MG/ML CPJ (NOT FOR IM USE) IV PRN (09:24)
[2018-08-17] MEDS: VANCOMYCIN 1250MG in DEXTROSE 5% WATER 250ML IV SCH (13:24)
[2018-08-18] VITALS (34 sets, daily range): BP systolic 105–160; BP diastolic 70–106
[2018-08-18] MEDS: VANCOMYCIN 1250MG in DEXTROSE 5% WATER 250ML IV SCH ×3 (00:05→23:00)
[2018-08-18] MEDS: LORAZEPAM 2MG/ML CPJ IV PRN ×2 (00:06→08:41)
[2018-08-18] MEDS: PIPERACILLIN/TAZ 3.375G PREMIX 50 ML IV SCH ×4 (02:02→20:05)
[2018-08-18] MEDS: SODIUM CHLORIDE 0.9% INJ 3ML FLUSH IVF SCH ×3 (05:03→21:07)
[2018-08-18 05:27] LABS: BASOPHILS % 0.5 % (0.0-2.0); EOSINOPHILS % 1.1 % (0.0-5.0); HEMATOCRIT. 46.5 % (42.0-52.0); HEMOGLOBIN. 15.5 g/dL (14.0-18.0); LYMPHOCYTES % 26.3 % (20.0-50.0); MEAN CORPUSCULAR HEMOGLOBIN 29.2 pg (28.0-32.0); MEAN CORPUSCULAR VOLUME 87.4 fL (80.0-94.0); MEAN PLATELET VOLUME 9.1 fl (7.4-10.4); MONOCYTES % 10.6 % (2.0-8.0); NEUTROPHILS % 61.5 % (40.0-76.0); PLATELET 241 x1000/uL (130-400); RED BLOOD CELL COUNT 5.32 mill/uL (4.7-6.1); RED CELL DISTRIBUTION WIDTH 14.9 % (11.6-14.6)
[2018-08-18 05:32] LABS: CHLORIDE 109 mEq/L (98-107)
[2018-08-18] MEDS: TAMSULOSIN HCL 0.4MG SR CAPSULE PO SCH ×2 (08:23→17:00)
[2018-08-18] MEDS: METOPROLOL TARTRATE 50MG TABLET PO SCH ×2 (08:23→20:05)
[2018-08-18] MEDS: LOSARTAN POTASSIUM 100 MG TABLET PO SCH (08:23)
[2018-08-18] MEDS: PANTOPRAZOLE SODIUM 40 MG/VIAL IV SCH ×2 (08:23→20:05)
[2018-08-18] MEDS: NIFEDIPINE XL 60MG TAB PO SCH (08:24)
[2018-08-18] MEDS ORDERED: KCL 20MEQ/100ML PREMIX 100 ML IV SCH (10:00)
[2018-08-18] MEDS: DEXT 5%/0.45% NACL 1000ML 1,000 ML IV SCH (10:15)
[2018-08-18] MEDS ORDERED: POTASSIUM CHLORIDE 20MEQ/PACKET PO NR (14:00)
[2018-08-18] MEDS: APIXABAN 5 MG TABLET PO SCH ×2 (14:38→22:59)
[2018-08-18] MEDS ORDERED: ALPRAZOLAM 0.5 MG TABLET PO PRN (18:43)
[2018-08-19] VITALS (24 sets, daily range): BP systolic 106–141; BP diastolic 51–108
[2018-08-19] MEDS: PIPERACILLIN/TAZ 3.375G PREMIX 50 ML IV SCH ×3 (01:52→13:25)
[2018-08-19] MEDS: SODIUM CHLORIDE 0.9% INJ 3ML FLUSH IVF SCH ×2 (05:04→13:26)
[2018-08-19] MEDS: DEXT 5%/0.45% NACL 1000ML 1,000 ML IV SCH (05:58)
[2018-08-19 06:01] LABS: BASOPHILS % 0.8 % (0.0-2.0); EOSINOPHILS % 2.6 % (0.0-5.0); HEMATOCRIT. 44.7 % (42.0-52.0); HEMOGLOBIN. 15.3 g/dL (14.0-18.0); LYMPHOCYTES % 22.5 % (20.0-50.0); MEAN CORPUSCULAR HEMOGLOBIN 29.5 pg (28.0-32.0); MEAN CORPUSCULAR VOLUME 86.5 fL (80.0-94.0); MEAN PLATELET VOLUME 9.1 fl (7.4-10.4); NEUTROPHILS % 64.1 % (40.0-76.0); PLATELET 265 x1000/uL (130-400); RED BLOOD CELL COUNT 5.17 mill/uL (4.7-6.1); RED CELL DISTRIBUTION WIDTH 14.4 % (11.6-14.6)
[2018-08-19 06:22] LABS: CHLORIDE 109 mEq/L (98-107)
[2018-08-19] MEDS: TAMSULOSIN HCL 0.4MG SR CAPSULE PO SCH ×2 (08:30→16:42)
[2018-08-19] MEDS: APIXABAN 5 MG TABLET PO SCH ×2 (08:30→16:42)
[2018-08-19] MEDS: LOSARTAN POTASSIUM 100 MG TABLET PO SCH (08:31)
[2018-08-19] MEDS: METOPROLOL TARTRATE 50MG TABLET PO SCH (08:33)
[2018-08-19] MEDS: PANTOPRAZOLE SODIUM 40 MG/VIAL IV SCH (08:33)
[2018-08-19] MEDS ORDERED: POTASSIUM CHLORIDE 20MEQ TABLET SR PO SCH (09:00)
[2018-08-19] MEDS ORDERED: NIFEDIPINE XL 60MG TAB PO SCH ×2 (09:00→21:00)
[2018-08-19] MEDS: VANCOMYCIN 1250MG in DEXTROSE 5% WATER 250ML IV SCH (11:44)
== END 2018-08-19 17:00 | disposition home or self-care (01) | DRG 194 ==
LOC: ER 19:46 → CVICU 22:12 → EDBEDREQSVC 22:16 → EDBEDREQTM 22:16 → EDBEDREQ 22:16 → CANRESERV 22:33 → ENRESERV 22:33 → EDBEDREQSVC 08-16 03:04 → EDBEDREQTM 08-16 03:04 → ENRESERV 08-16 04:45
PROVIDERS: ADMIT Internal Medicine; ATTEND Internal Medicine
DX: I11.0 Hypertensive heart disease with heart failure (principal); G92 Toxic encephalopathy; D68.59 Other primary thrombophilia; E86.0 Dehydration; K92.2 Gastrointestinal hemorrhage, unspecified; I48.0 Paroxysmal atrial fibrillation; D72.829 Elevated white blood cell count, unspecified; E66.9 Obesity, unspecified; I50.33 Acute on chronic diastolic (congestive) heart failure; E78.5 Hyperlipidemia, unspecified; N40.1 Benign prostatic hyperplasia with lower urinary tract symptoms; R33.8 Other retention of urine; R73.9 Hyperglycemia, unspecified; I16.0 Hypertensive urgency; M19.90 Unspecified osteoarthritis, unspecified site; F41.9 Anxiety disorder, unspecified; I16.1 Hypertensive emergency; N39.0 Urinary tract infection, site not specified; R80.9 Proteinuria, unspecified; J98.11 Atelectasis; I25.10 Atherosclerotic heart disease of native coronary artery without angina pectoris; I25.2 Old myocardial infarction; Z79.01 Long term (current) use of anticoagulants; Z95.1 Presence of aortocoronary bypass graft; Z79.899 Other long term (current) drug therapy; Z68.26 Body mass index [BMI] 26.0-26.9, adult
CPT/HCPCS: 36415; 36600; 71045; 71275; 74176; 80048; 80202; 80305; 82270; 82375; 82550; 82553; 82805; 83036; 83880; 84153; 84484; 85027; 92610; 93005; 93306; 97110; 97116; 97163; 99291; C9113; J0360; J2060; J2270; J2405; J2543; J3370; J3480; J3490; J7050; J7060; J7620; Q9967; G0103